=== PATIENT | male | born 1960 | race Caucasian/White ===

== ENCOUNTER 2020-06-10 06:16 | Day surgery (SDC) | payer OTHER ==
[2020-06-09 13:31] LABS: COVID AG,FIA SOURCE NASOPHARYNGEAL
[~2020-06-10] VITALS: Ht 172.7 cm; Wt 70.5 kg
[~2020-06-10 06:16] MED LIST: SODIUM CHLORIDE 0.9% 1,000 ML ONE
[2020-06-10] MEDS: SODIUM CHLORIDE 0.9% 1,000 ML IV ONE (06:49)
[2020-06-10] MEDS ORDERED: FLUT1BLS10 IH (07:03)
[2020-06-10] MEDS ORDERED: MONT-35 PO (07:03)
[2020-06-10] MEDS ORDERED: DOXY50CA7 PO (07:03)
[2020-06-10] MEDS ORDERED: TIOT185 IH (07:03)
[2020-06-10] MEDS ORDERED: PRED10 PO (07:03)
[2020-06-10] MEDS ORDERED: FentaNYL CITRATE-PF 100 MCG/2 ML VIAL ONE (07:32)
[2020-06-10] MEDS ORDERED: MIDAZOLAM HCL 2 MG/2 ML VIAL ONE (07:32)
[2020-06-10] MEDS ORDERED: MethylPREDNISolone SOD SUCC 125 MG/2 ML VIAL ONE (09:10)
[2020-06-10] MEDS: MethylPREDNISolone SOD SUCC 125 MG/2 ML VIAL IVP ONE (09:11)
[2020-06-10] MEDS ORDERED: LIDOCAINE 2% 30 ML JELLY ONE (11:30)
[2020-06-10] MEDS ORDERED: ALBUTEROL SULFATE 2.5 MG/0.5 ML NEB SOLUTION NEB ONE (11:30)
[2020-06-10] MEDS ORDERED: LIDOCAINE 4% 50 ML SOLUTION ONE (11:30)
[2020-06-10] MEDS ORDERED: BENZOCAINE 20% 50 MCG/SPRAY 57 GM ONE (11:30)
[2020-06-10] MEDS ORDERED: OXYGEN THERAPY IH SCH (20:00)
== END 2020-06-10 10:40 | disposition home or self-care (01) ==
LOC: SURGERY 06:16
PROVIDERS: ATTEND Internal Medicine Critical Care Medicine
DX: J38.4 Edema of larynx (principal); B37.0 Candidal stomatitis; Z20.828 Contact with and (suspected) exposure to other viral communicable diseases
CPT/HCPCS: 31623; 31624; 71045; 87070; 87101; 87206; 87220; 87426; C9803; J2250; J2930; J3010; J7030; 87015; 88108; 88312; J7613; Z7610

== ENCOUNTER 2021-03-29 06:02 | Day surgery (SDC) | payer OTHER ==
[2021-03-26 14:25] LABS: COVID AG,FIA SOURCE NASOPHARYNGEAL
[~2021-03-29] VITALS: Ht 165.1 cm; Wt 74.5 kg
[~2021-03-29 06:02] MED LIST changes: +DOXY50CA PO; +FLUT1BLS10 IH; +MONT-35 PO; +PRED10 PO; +TIOT185 IH
[2021-03-29] MEDS ORDERED: SODIUM CHLORIDE 0.9% 1,000 ML ONE (06:25)
[2021-03-29] MEDS ORDERED: SODIUM CHLORIDE 0.9% 1,000 ML IV ONE (06:30)
[2021-03-29] MEDS ORDERED: FentaNYL CITRATE PF 100 MCG/2 ML VIAL ONE (07:27)
[2021-03-29] MEDS ORDERED: MIDAZOLAM HCL 5 MG/ML VIAL ONE (07:28)
[2021-03-29] MEDS ORDERED: SIMV-260 PO (07:49)
[2021-03-29] MEDS ORDERED: COSO10OS OU (07:49)
[2021-03-29] MEDS ORDERED: OMEP20 PO (07:49)
[2021-03-29] MEDS ORDERED: NYST100033 PO (07:49)
[2021-03-29] MEDS ORDERED: MethylPREDNISolone SOD SUCC 125 MG/2 ML VIAL IVP ONE (09:00)
[2021-03-29] MEDS ORDERED: LIDOCAINE 2% 30 ML JELLY ONE (14:31)
[2021-03-29] MEDS ORDERED: BENZOCAINE 20% 50 MCG/SPRAY 57 GM ONE (14:31)
[2021-03-29] MEDS ORDERED: ALBUTEROL SULFATE 2.5 MG/0.5 ML NEB SOLUTION NEB ONE (14:31)
[2021-03-29] MEDS ORDERED: OXYGEN THERAPY IH SCH (20:00)
== END 2021-03-29 10:55 | disposition home or self-care (01) ==
LOC: SURGERY 06:02
PROVIDERS: ATTEND Internal Medicine Critical Care Medicine
DX: J38.4 Edema of larynx (principal); B37.0 Candidal stomatitis; F17.210 Nicotine dependence, cigarettes, uncomplicated; Z72.89 Other problems related to lifestyle; Z79.899 Other long term (current) drug therapy; Z98.890 Other specified postprocedural states
CPT/HCPCS: 31623; 31624; 71045; 87015; 87070; 87101; 87205; 87206; 87220; 87426; 88108; 88184; 88185; 88312; C9803; J2250; J2930; J3010; J7030; 87077; J7613

== ENCOUNTER 2024-09-06 06:16 | Day surgery (SDC) | payer OTHER ==
[~2024-09-06] VITALS: Ht 165.1 cm; Wt 74.5 kg
[~2024-09-06 06:16] MED LIST changes: +DORZ10DR10 OU; -DOXY50CA PO; -MONT-35 PO; +NYST100033 PO; +OMEP-148 PO; -PRED10 PO; +SIMV-260 PO; -SODIUM CHLORIDE 0.9% 1,000 ML ONE
[2024-09-06] MEDS ORDERED: BENZOCAINE 20% 50 MCG/SPRAY 57 GM TP ONE (06:17)
[2024-09-06] MEDS ORDERED: LIDOCAINE 2% 11 ML JELLY TP ONE (06:17)
[2024-09-06] MEDS ORDERED: LIDOCAINE 4% 50 ML SOLUTION TP ONE (06:17)
[2024-09-06] MEDS ORDERED: ALBUTEROL SULFATE 2.5 MG/0.5 ML NEB SOLUTION NEB ONE (06:17)
[2024-09-06] MEDS ORDERED: SODIUM CHLORIDE 0.9% 1,000 ML ONE (06:42)
[2024-09-06] MEDS: SODIUM CHLORIDE 0.9% 1,000 ML IV ONE (07:23)
[2024-09-06] MEDS ORDERED: NALOXONE HCL 0.4 MG/ML VIAL ONE (07:51)
[2024-09-06] MEDS ORDERED: SODIUM TETRADECYL SULFATE 3% 60 MG/2 ML VIAL IVP ONE (07:51)
[2024-09-06] MEDS ORDERED: DiphenhydrAMINE HCL 50 MG/ML VIAL ONE (07:51)
[2024-09-06] MEDS ORDERED: FLUMAZENIL 0.1 MG/ML 5 ML VIAL IVP ONE (07:51)
[2024-09-06] MEDS ORDERED: ATROPINE SULFATE 0.1 MG/ML 10 ML SYRINGE IVP ONE (07:52)
[2024-09-06] MEDS ORDERED: EPINEPHrine 1:10,000 [1 MG/10 ML] SYRINGE ONE (07:52)
[2024-09-06] MEDS ORDERED: FentaNYL CITRATE PF 100 MCG/2 ML VIAL ONE (07:53)
[2024-09-06] MEDS ORDERED: MIDAZOLAM HCL 2 MG/2 ML VIAL ONE (07:54)
[2024-09-06 09:25] VITALS: PULSE 62; RESP 16; O2SAT 100
[2024-09-06] MEDS ORDERED: MethylPREDNISolone SOD SUCC 125 MG/2 ML VIAL ONE (09:49)
[2024-09-06] MEDS: MethylPREDNISolone SOD SUCC 125 MG/2 ML VIAL IVP ONE (09:54)
== END 2024-09-06 11:45 | disposition home or self-care (01) ==
LOC: SURGERY 06:16
PROVIDERS: ATTEND Internal Medicine Critical Care Medicine
DX: R05.3 Chronic cough (principal); J38.4 Edema of larynx; F17.210 Nicotine dependence, cigarettes, uncomplicated; B37.0 Candidal stomatitis; Z98.49 Cataract extraction status, unspecified eye; Z20.822 Contact with and (suspected) exposure to COVID-19; Z98.890 Other specified postprocedural states
CPT/HCPCS: 31623; 87206; 87101; 87220; 87070; 88108; 31624; 94640; 71045; 87015; J3010; J2250; J2919; J7030; J0171; J0461; J1200; J2310; J3490; J7613; Z7610

== ENCOUNTER → 2025-06-13 | Day surgery (SDC) | payer MEDICARE, OTHER ==
[~2025-06-13] VITALS: Ht 167.6 cm; Wt 67.0 kg
[~2025-06-13] MED LIST changes: +ALBUTEROL SULFATE 2.5 MG/0.5 ML 5 ML NEB SOLUTION NEB ONE; +BENZOCAINE 20% 50 MCG/SPRAY 57 GM ONE; +FentaNYL CITRATE PF 100 MCG/2 ML VIAL ONE; +LIDOCAINE 2% 11 ML JELLY ONE; +LIDOCAINE 4% 50 ML SOLUTION ONE; +MIDAZOLAM HCL 2 MG/2 ML VIAL ONE; +SODIUM CHLORIDE 0.9% 1,000 ML ONE
[2025-06-13] MEDS: SODIUM CHLORIDE 0.9% 1,000 ML IV ONE (07:51)
[2025-06-13 09:30] VITALS: PULSE 54; RESP 20; O2SAT 100
== END | disposition home or self-care (01) ==
LOC: SURGERY 06:01
PROVIDERS: ATTEND Internal Medicine Critical Care Medicine
DX: J38.4 Edema of larynx (principal); B37.0 Candidal stomatitis; R05.3 Chronic cough; R04.2 Hemoptysis; R91.8 Other nonspecific abnormal finding of lung field; E78.00 Pure hypercholesterolemia, unspecified; J45.909 Unspecified asthma, uncomplicated; Z98.49 Cataract extraction status, unspecified eye
CPT/HCPCS: 31623; 87206; 87101; 87220; 87070; 31624; 94640; 71045; 87015; J3010; J2250; J2919; J7030; 88108; Z7610